=== PATIENT | male | born 1970 | race Caucasian/White ===

== ENCOUNTER 2017-03-14 18:45 | Emergency (ER) | payer OTHER ==
[2017-03-14 18:52] VITALS: TEMP 98.4
--- NOTE | 2017-03-14 19:58 | C.PDOC ---
History Of Present Illness 46 y/o male presents to the ER c/o a puncture wound to the right hand that occurred this morning. Pain radiates to the right 3rd finger and to the rest of the hand. Patient notes that a sharp tool punctured the right hand while at work this morning. Patient took no medications for pain. Tetanus is UTD. Denies suspected foreign body, fever, chills, weakness, numbness, or any other complaints. Time Seen by Provider: 03/14/17 19:23 Chief Complaint (Nursing): Finger,Hand,&Wrist History Per: Patient History/Exam Limitations: no limitations Onset/Duration Of Symptoms: Hrs (This morning) Current Symptoms Are (Timing): Still Present Quality: "Pain" Severity: Moderate Exacerbating Factor(s): Movement Recent travel outside of the [place]: No Additional History Per: Patient Past Medical History Reviewed: Historical Data, Nursing Documentation, Vital Signs Vital Signs: Last Vital Signs Temp 98.4 F 03/14/17 18:48 Pulse 89 03/14/17 20:21 Resp 18 03/14/17 20:21 BP 139/78 03/14/17 20:21 Pulse Ox 98 03/14/17 20:21 - [facility] Procedures TETANUS TOXOID ADMINIST (02/23/15) Family History: States: Unknown Family Hx - Social History Hx Tobacco Use: Yes Hx Alcohol Use: Yes Hx Substance Use: No - Immunization History Hx Tetanus Toxoid Vaccination: Yes (2 years ago) Hx Influenza Vaccination: Yes (2016) Hx Pneumococcal Vaccination: No Review Of Systems Constitutional: Negative for: Fever, Chills Musculoskeletal: Positive for: Hand Pain (Right hand pain) Neurological: Negative for: Weakness, Numbness Physical Exam - Physical Exam Appears: Non-toxic, No Acute Distress Skin: Warm, Dry Eye(s): bilateral: Normal Inspection Extremity: No Normal ROM (Limited due to pain), Tenderness (on palpation of area of puncture wound, right palm and motion of right 3rd finger), Capillary Refill (<2secs), No Deformity, No Swelling, Other (Small puncture wound proximal to the 3rd IP joint of the right hand, ray aspect.) Extremity: Bilateral: Normal Color And Temperature Pulses: Left Radial: Normal, Right Radial: Normal Neurological/Psych: Oriented x3 (Awake and alert), Normal Motor, Normal Sensation ED Course And Treatment O2 Sat by Pulse Oximetry: 99 (RA) Pulse Ox Interpretation: Normal - Other Rad Hand , Rt X-Ray: Interpreted by Me, Viewed By Me Interpretation: No fracture or FB Progress Note: Impression: 46 y/o male presents to the ER c/o puncture wound to the right hand that occurred this morning. Plans: Motrin, XRAY right hand. XRAy right hand: Shows no fractures or dislocations. Patient is in no acute distress at this time. Patient has some tenderness on palpation and motion, pt has no numbness, or weakness. Patient was instructed to follow up with Hand specialist for further evaluation and to return to the ER if symptoms worsens. Reassessment Condition: Improved Disposition Counseled Patient/Family Regarding: Diagnosis, Need For Followup, Rx Given - Disposition Referrals: Peggy Sevilla MD [Staff Provider] - Disposition: HOME/ ROUTINE Disposition Time: 19:55 Condition: STABLE Additional Instructions: take motrin as needed for pain Take augmentin as prescribed Follow up with PMD Return to ER if hand is very swollen, red, hot to touch, unable to move any fingers, numbness or worse Prescriptions: Amoxicillin/Clavulanate [Augmentin 875 MG-125 MG] 1 tab PO BID #14 tab Ibuprofen [Motrin] 600 mg PO Q6H #20 tab Instructions: Puncture Wound (ED) Forms: [facility] (Surinamese), School Excuse - Clinical Impression Clinical Impression: Puncture wound of hand, right - Scribe Statement The provider has reviewed the documentation as recorded by the Scribe Margareth romero All medical record entries made by the Scribe were at my direction and personally dictated by me. I have reviewed the chart and agree that the record accurately reflects my personal performance of the history, physical exam, medical decision making, and the department course for this patient. I have also personally directed, reviewed, and agree with the discharge instructions and disposition.
[2017-03-14] MEDS ORDERED: Amoxicillin-Clav 875-125 mg Tab PO ONE (20:09)
[2017-03-14] MEDS ORDERED: Amoxicillin-Clav 875-125 mg Tab PO STA (20:21)
[2017-03-14 20:22] VITALS: BP 139/78; PULSE 89; RESP 18
[2017-03-14 20:55] VITALS: O2SAT 99
--- NOTE | 2017-03-15 09:47 | RAD ---
PROCEDURE: Right Hand Radiographs. HISTORY: post injury COMPARISON: None available. FINDINGS: BONES: No acute displaced fracture. JOINTS: No dislocation. SOFT TISSUES: Unremarkable. No evidence of radiopaque foreign body. OTHER FINDINGS: None. IMPRESSION: No acute displaced fracture, dislocation, or significant joint effusion identified. If symptoms persist, or if there is continued clinical concern, x-ray follow-up in 7-10 days should be considered.
== END 2017-03-14 20:24 | disposition home or self-care (01) ==
LOC: C.ER 18:45
DX: S61.431A Puncture wound without foreign body of right hand, initial encounter (principal); W27.8XXA Contact with other nonpowered hand tool, initial encounter; Y93.89 Activity, other specified; Y92.89 Other specified places as the place of occurrence of the external cause; Y99.0 Civilian activity done for income or pay

== ENCOUNTER 2017-08-07 12:37 | Emergency (ER) | payer OTHER ==
--- NOTE | 2017-08-07 16:40 | C.PDOC ---
- HPI Time Seen by Provider: 08/07/17 14:34 Chief Complaint (Nursing): Trauma Past Medical History Vital Signs: Last Vital Signs Temp 97.9 F 08/07/17 13:36 Pulse 86 08/07/17 13:36 Resp 20 08/07/17 13:36 BP 131/84 08/07/17 13:36 Pulse Ox 97 08/07/17 13:36 - [facility] Procedures TETANUS TOXOID ADMINIST (02/23/15) Family History: States: Unknown Family Hx - Social History Hx Tobacco Use: Yes Hx Alcohol Use: Yes Hx Substance Use: No - Immunization History Hx Tetanus Toxoid Vaccination: Yes (2 years ago) Hx Influenza Vaccination: Yes (2015) Hx Pneumococcal Vaccination: No ED Course And Treatment O2 Sat by Pulse Oximetry: 97 Disposition - Disposition Referrals: Dustin Barrett MD [Staff Provider] - Disposition: HOME/ ROUTINE Disposition Time: 16:38 Condition: GOOD Additional Instructions: Follow up with the medical doctor/clinic within 1-2 days without fail. Return if worsened. Prescriptions: Cyclobenzaprine [Cyclobenzaprine HCl] 10 mg PO BID #14 tab Naproxen [Naprosyn] 500 mg PO BID #20 tab Instructions: Hematoma (ED), Hip Contusion (ED) Forms: [facility] (Icelandic), Work Excuse, School Excuse - Clinical Impression Clinical Impression: Back contusion, Contusion, hip
--- NOTE | 2017-08-07 16:41 | C.PDOC ---
History Of Present Illness 46-year-old male, presents to the emergency department with complaints of slip/ fall on buttocks injuring his right hip, last night at 8pm. States he is able to ambulate with pain. He took Advil at home with minimal relief. Denies numbness/weakness, head injuries, or any other associated symptoms. No other complaints at this time. - HPI Time Seen by Provider: 08/07/17 14:34 Chief Complaint (Nursing): Trauma History Per: Patient History/Exam Limitations: no limitations Past Medical History Reviewed: Historical Data, Nursing Documentation, Vital Signs Vital Signs: Last Vital Signs Temp 97.9 F 08/07/17 13:36 Pulse 86 08/07/17 13:36 Resp 20 08/07/17 13:36 BP 131/84 08/07/17 13:36 Pulse Ox 97 08/07/17 16:42 - [facility] Procedures TETANUS TOXOID ADMINIST (02/23/15) Family History: States: No Known Family Hx, Unknown Family Hx - Social History Hx Tobacco Use: Yes Hx Alcohol Use: Yes Hx Substance Use: No - Immunization History Hx Tetanus Toxoid Vaccination: Yes (2 years ago) Hx Influenza Vaccination: Yes (2016) Hx Pneumococcal Vaccination: No Review Of Systems Except As Marked, All Systems Reviewed And Found Negative. Constitutional: Negative for: Fever Cardiovascular: Negative for: Chest Pain Respiratory: Negative for: Shortness of Breath Gastrointestinal: Negative for: Vomiting Musculoskeletal: Positive for: Other (hip pain) Neurological: Negative for: Weakness, Numbness, Headache, Dizziness Physical Exam - Physical Exam Appears: Non-toxic, No Acute Distress Skin: Warm, Dry, No Rash, Other ([id number] echymosis to right buttock) Head: Atraumatic, Normacephalic Eye(s): bilateral: Normal Inspection, PERRL Nose: Normal Oral Mucosa: Moist Lips: Normal Appearing Neck: Normal ROM, Supple Chest: Symmetrical Cardiovascular: Rhythm Regular, No Murmur Respiratory: Normal Breath Sounds, No Accessory Muscle Use Extremity: Other (Right hip and coccygeal tenderness.) Neurological/Psych: Oriented x3, Normal Speech ED Course And Treatment O2 Sat by Pulse Oximetry: 97 (on RA) Pulse Ox Interpretation: Normal Disposition - Disposition Referrals: Dustin Barrett MD [Staff Provider] - Disposition Time: 16:38 Condition: GOOD Additional Instructions: Follow up with the medical doctor/clinic within 1-2 days without fail. Return if worsened. Prescriptions: Cyclobenzaprine [Cyclobenzaprine HCl] 10 mg PO BID #14 tab Naproxen [Naprosyn] 500 mg PO BID #20 tab Instructions: Hematoma (ED), Hip Contusion (ED) Forms: [facility] (Trinidadian), School Excuse, Work Excuse - Clinical Impression Clinical Impression: Back contusion, Contusion, hip - Scribe Statement The provider has reviewed the documentation as recorded by the Scribe (Akira Barrett) All medical record entries made by the Scribe were at my direction and personally dictated by me. I have reviewed the chart and agree that the record accurately reflects my personal performance of the history, physical exam, medical decision making, and the department course for this patient. I have also personally directed, reviewed, and agree with the discharge instructions and disposition.
[2017-08-07 16:48] VITALS: BP 122/80; PULSE 74; RESP 18; TEMP 98.2; O2SAT 98
--- NOTE | 2017-08-07 16:58 | RAD ---
Indication: Fall, injury Right hip with pelvis Comparison: None available Findings: No acute displaced fracture or dislocation identified. Sacroiliac joints appear intact. Soft tissues appear unremarkable. No evidence of radiopaque foreign body. Calcification versus well corticated ossifications adjacent to the right greater than left femoral heads. Impression: No acute displaced fracture or dislocation evident. If high clinical index of suspicion, suggest cross-sectional imaging for further evaluation. Otherwise, if symptoms persist or if there is continued clinical concern, x-ray follow-up in 7-10 days should be considered.
--- NOTE | 2017-08-07 17:00 | RAD ---
PROCEDURE: Radiographs of the Sacrum and Coccyx HISTORY: FALL ONTO BUTTOCKS COMPARISON: None available. TECHNIQUE: Frontal and lateral views of the sacrum and coccyx FINDINGS: BONES: Sacrum and coccyx unremarkable. No acute displaced fracture or subluxation evident. SACROILIAC JOINTS: Unremarkable. OTHER FINDINGS: None. IMPRESSION: Unremarkable radiographs of the sacrum and coccyx.
== END 2017-08-07 16:48 | disposition home or self-care (01) ==
LOC: C.ER 12:37
DX: S30.0XXA Contusion of lower back and pelvis, initial encounter (principal); S70.01XA Contusion of right hip, initial encounter; W01.0XXA Fall on same level from slipping, tripping and stumbling without subsequent striking against object, initial encounter; Y92.9 Unspecified place or not applicable